=== PATIENT | male | born 1990 | race Caucasian/White ===

== ENCOUNTER 2016-08-04 18:54 | Emergency (ER) | payer MEDICAID, OTHER ==
[2016-08-04 18:56] VITALS: BMI 35.2
[2016-08-04 19:03] VITALS: BP 152/87; PULSE 88; RESP 18; TEMP 97.7; O2SAT 97
[2016-08-04] MEDS ORDERED: Bacitracin 500 Units/gm Oint Foilpak UD TOP ONE (19:05)
[2016-08-04] MEDS ORDERED: Naproxen 550 mg Tab PO STA (19:05)
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
[2016-08-04] MEDS ORDERED: Bacitracin 500 Units/gm Oint Foilpak UD ONE (20:13)
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
--- NOTE | 2016-08-05 08:47 | RAD ---
PROCEDURE: Left Knee Radiographs. HISTORY: Pain. COMPARISON: None. FINDINGS: BONES: Normal. No fracture. JOINTS: Normal. No osteoarthritis. JOINT EFFUSION: None. OTHER FINDINGS: Soft tissue swelling seen at the anterior aspect of the left knee. IMPRESSION: No evidence of acute fracture or dislocation.
== END 2016-08-04 20:22 | disposition home or self-care (01) ==
LOC: C.ER 18:54
DX: S80.212S Abrasion, left knee, sequela (principal); M25.462 Effusion, left knee; V28.4 Motorcycle driver injured in noncollision transport accident in traffic accident